=== PATIENT | female | born 1950 | race Caucasian/White ===

== ENCOUNTER → 2017-07-22 09:41 | Outpatient (CLI) | payer OTHER, SELFPAY ==
--- NOTE | 2017-07-22 09:47 | DI.ECHO.S_ITS ---
[facility] +---------+ : : [address] : : : : [id number] : : : : Phone: [phone] Echocardiogram Report + + :Name: KAHLIL WALTER Study Date: 07/22/2017 Height: 65 in : :[facility] Weight: 179 lb : : Gender: Female BSA: 1.9 m2 : :: 1950 Age: 67 yrs BP: 114/80 mmHg: :Reason For Study: Murmur : : Performed By: Iris Mabry : :Referring: SISI FRASER : + + Interpretation Summary Normal left ventricle size with ejection fraction 60-65%. Grade I diastolic dysfunction. Mildly dilated left atrium. Mild mitral annular calcification. Mild tricuspid regurgitation. The right ventricular systolic pressure is estimated at 21 mmHg assuming a right atrial pressure of 3 mm Hg. Procedure: A two-dimensional transthoracic echocardiogram with color flow and Doppler was performed. The study quality was technically good. There is no prior echocardiogram noted for this patient. The patient was in normal sinus rhythm during the exam. Left Ventricle: The left ventricle is normal in size. There is normal left ventricular wall thickness. The ejection fraction is estimated to be 60-65%. There are no focal wall motion abnormalities. Grade I diastolic dysfunction. Right Ventricle: The right ventricle grossly appears normal in size with probable normal systolic function. Atria: The left atrium is mildly dilated. Right atrial size is normal. The interatrial septum is intact with no evidence for an atrial septal defect. Mitral Valve: The mitral valve leaflets appear borderline thickened, but open well. There is mild mitral annular calcification. There is no mitral regurgitation noted. Aortic Valve: The aortic valve is trileaflet. The aortic valve opens well. No aortic regurgitation is present. Tricuspid Valve: The tricuspid valve leaflets are thin and pliable. There is mild tricuspid regurgitation. The right ventricular systolic pressure is estimated at 21 mmHg assuming a right atrial pressure of 3 mm Hg. Pulmonic Valve: The pulmonic valve is not well seen, but is grossly normal. There is no pulmonic valvular regurgitation. Great Vessels: The aortic root is normal size. The dimensions of the ascending aorta are normal. The IVC is of normal diameter and collapses greater than 50% with a sniff. This suggests a low right atrial pressure of 3 mm Hg. Pericardium/ Pleura There is no pericardial effusion. There is no pleural effusion. MMode/2D Measurements & Calculations LVIDd: 4.0 cm Ao root diam: 3.0 cm LVIDs: 2.6 cm Aortic Jxn: 2.6 cm FS: 34.3 % asc Aorta Diam: 3.4 cm EPSS: 1.4 cm Ao Arch Diam (Prox Trans): 2.7 cm IVSd: 0.87 cm LVPWd: 0.98 cm LV funk. diameter/BSA (cm/m^2): 2.1 LV sys. diameter/BSA (cm/m^2): 1.4 LA dimension: 3.5 cm RA long axis: 4.8 cm LA A2 area: 23.2 cm2 RA area: 15.4 cm2 LA A4 area: 21.5 cm2 RA vol: 41.8 ml LA length (vol): 5.3 cm RA : 22.2 ml/m2 LA vol: 80.6 ml IVC diam: 1.3 cm LA vol index: 42.7 ml/m2 RVDd major: 5.0 cm RVD1 (basal): 3.3 cm RVD2 (mid): 2.5 cm Doppler Measurements & Calculations Ao V2 max: 153.7 cm/sec MV E max mg: 63.6 cm/sec Ao V2 mean: 105.0 cm/sec MV A max mg: 84.0 cm/sec Ao max P.4 mmHg MV E/A: 0.76 Ao mean P.0 mmHg Med Peak E' Mg: 5.4 cm/sec Ao V2 VTI: 35.7 cm E/E' med: 11.9 Lat Peak E' Mg: 5.6 cm/sec E/E' lat: 11.4 E/e' average: 11.6 MV dec time: 0.28 sec MV P1/2t: 84.0 msec TR max mg: 211.7 cm/sec MV P1/2t max mg: 64.4 cm/sec TR max P.9 mmHg MVA(P1/2t): 2.6 cm2 PA V2 max: 75.4 cm/sec PA V2 mean: 44.0 cm/sec PA mean P.99 mmHg PA Accel Time: 0.20 sec Electronically signed by: Ti Mccauley on Reading Physician:07/22/2017 01:50 PM
== END ==
PROVIDERS: PCP Physician Assistant; Visit Provider Physician Assistant
DX: I07.1 Rheumatic tricuspid insufficiency (principal); R01.1 Cardiac murmur, unspecified; E03.9 Hypothyroidism, unspecified
CPT/HCPCS: 93306

== ENCOUNTER → 2017-07-23 08:50 | Outpatient (CLI) | payer OTHER, SELFPAY ==
[2017-07-23 09:49] LABS: Alanine Aminotransferase 27 IU/L (9-52); Albumin 4.3 g/dL (3.5-5.0); Albumin Globulin Ratio 1.2 (1.0-2.8); Alkaline Phosphatase 55 U/L (38-126); Aspartate Aminotransferase 24 IU/L (14-36); BUN Creatinine Ratio 27.5 (6-22); Bilirubin Total 0.5 mg/dL (0.2-1.3); Blood Urea Nitrogen 22 mg/dL (7-17); Calcium 9.4 mg/dL (8.4-10.2); Carbon Dioxide 30 mmol/L (22-32); Chloride 100 mmol/L (98-107); Cholesterol 250 mg/dL (140-199); Estimated Glomerular Filt Rate > 60.0 mL/min (>60); Globulin 3.6 g/dL (1.7-4.1); Glucose 89 mg/dL (80-110); HDL Cholesterol 69 mg/dL (40-60); HEMOLYSIS < 15 (0-50); LDL Cholesterol Calculated 158 mg/dL (<100); Potassium 4.5 mmol/L (3.4-5.1); Sodium 141 mmol/L (137-145); Total Protein 7.9 g/dL (6.3-8.2); Triglycerides 113 mg/dL (35-150)
[2017-07-23 10:12] LABS: Free T4, Direct Thyroxine 0.89 ng/dL (0.78-2.19)
== END ==
PROVIDERS: PCP Physician Assistant; Visit Provider Physician Assistant
DX: E03.9 Hypothyroidism, unspecified (principal); R01.1 Cardiac murmur, unspecified
CPT/HCPCS: 36415; 80053; 80061; 84439; 84443

== ENCOUNTER → 2017-11-13 09:47 | Outpatient (CLI) | payer OTHER, SELFPAY ==
--- NOTE | 2017-11-13 09:49 | DI.MG.S_ITS ---
BILATERAL DIGITAL SCREENING MAMMOGRAM 3D/2D WITH CAD: 11/13/2017 CLINICAL: Routine screening. Comparison is made to exams dated: 04/30/2014 mammogram, 01/13/2013 mammogram, and 12/24/2012 mammogram - [facility]. There are scattered fibroglandular elements in both breasts. Current study was also evaluated with a Computer Aided Detection (CAD) system. No significant masses, calcifications, or other findings are seen in either breast. There has been no significant interval change. IMPRESSION: NEGATIVE There is no mammographic evidence of malignancy. A 1 year screening mammogram is recommended.(11/14/2018) NOTE: For mammograms, a report in lay terms will be sent to the patient. Approximately 15% of breast malignancies will not be visualized mammographically. In the management of a palpable breast mass, a negative mammogram must not discourage biopsy of a clinically suspicious lesion. Electronically Signed By: Sheila mcintyre/magno:11/13/2017 13:19:47 letter sent: Normal Exam ACR BI-RADS Category 1: Negative [id number]
== END ==
PROVIDERS: PCP Physician Assistant; Visit Provider Physician Assistant
DX: Z12.31 Encounter for screening mammogram for malignant neoplasm of breast (principal)
CPT/HCPCS: 77063; 77067

== ENCOUNTER 2017-12-11 10:37 | Day surgery (SDC) | payer OTHER, SELFPAY ==
--- NOTE | 2017-12-11 | PATH_ITS ---
[facility] Accession Number: [id number] . 01 Material submitted: . ASCENDING COLON POLYP . 02 Diagnosis: Biopsy, Ascending Colon Polyp: Polypoid-shaped fragment of colon mucosa associated with very prominent mucosal lymphoid aggregate. MRV/12/12/2017 . 02 Electronically signed: . Mike Pan MD, Pathologist NPI- [id number] . 01 Gross description: . Received one formalin-filled container labeled with the patient's name and labeled ascending col. Polyp. The specimen consists of a 0.2 cm portion of tissue. Entirely submitted in one cassette. [place] [id number] /[facility] . 02 Pathologist provided ICD-10: K63.5 . 02 CPT . 927907 Performed at: 01 [facility] [place] [address] [id number] MD Dick Malloy MD Phone: [phone] Performed at: 02 [facility] [place] [address] [place], [place] [id number] MD Bautista Arthur MD Phone: [phone]
[2017-12-11 11:15] VITALS: BMI 31.1
[2017-12-11] MEDS: SODIUM CHLORIDE 0.9% 1,000 ML 70 ML IV (11:30)
--- NOTE | 2017-12-11 11:30 | PM.HP.1 ---
History of Present Illness Date Patient Seen: 12/11/17 Chief complaint: [id number] Narrative: 67-year-old female with a family history colon cancer and colon polyps as well as a personal history of polyps on prior colonoscopy in 2012 who is here for polyp surveillance. She states she had a ruptured appendix around 3 years ago and was told she had adhesions. Patient History Medical History ADD (attention deficit disorder) (Chronic 2007) Factor VII deficiency (Chronic Unknown) Hypothyroidism (Chronic 1977) IBS (irritable bowel syndrome) (Chronic ~2017) Lichen sclerosus of female genitalia (Chronic Unknown) Mitral valve prolapse (Chronic 1987) Osteopenia (Chronic 2013) Scoliosis (Chronic Unknown) Seasonal affective disorder (Chronic Unknown) Colon polyps (Resolved 2005) Fibroids (Resolved 1982) MRSA (methicillin resistant Staphylococcus aureus) (Resolved 2007) Melanoma (Resolved 1952) Plantar warts (Resolved ~1953) Urinary incontinence (Resolved ~2015) Surgical History History of surgical removal of ganglion cyst (Resolved Unknown) S/P total abdominal hysterectomy and bilateral salpingo-oophorectomy Status post appendectomy Family & Social History Tobacco & Substance use: Smoking Status Never smoker alcohol intake current Meds Home Medications Medication Instructions Recorded Confirmed Type [VITAMIN D3] 8,000 mg PO QDAY #0 02/28/17 12/11/17 History clobetasol 1 maximiliano TOPICAL HS #0 02/28/17 12/11/17 History levothyroxine 25 mcg tablet 25 mcg PO DAILY #90 tab 07/22/17 12/11/17 Rx oxybutynin chloride ER 5 mg See Label Instructions PO DAILY 07/22/17 12/11/17 Rx tablet,extended release 24 hr #180 tab Ibandronate 150 mg See Label Instructions .ROUTE 11/05/17 12/09/17 History .COMPLEX venlafaxine ER 37.5 mg 75 mg PO DAILY #60 cap 11/25/17 12/09/17 Rx capsule,extended release 24 hr Vitamin K2 1 l PO DAILY 12/09/17 12/11/17 History [TRI-ESTROGEN/PROGEST] See Label Instructions TOPICAL 12/10/17 12/11/17 Rx QDAY #22.5 Allergies Allergy/AdvReac Type Severity Reaction Status Date / Time grass pollen [GRASS POLLEN] Allergy Mild ITCHING Unverified 12/09/17 09:11 AND RED RASH escitalopram [From Lexapro] AdvReac Intermediate made me Verified 12/09/17 09:11 feel sedated and sleepy. Influenza Virus Vaccines AdvReac Intermediate FEVER, Unverified 12/09/17 09:11 [INFLUENZA VIRUS VACCINES] ACHES AND PAINS AND WIPED OUT. I ENDED UP IN BED sertraline AdvReac Mild made me Verified 12/09/17 09:11 feel anxious and jittery. SMOKE Allergy Severe BLOOD SHOT Uncoded 12/09/17 09:11 EYES, SORE THROAT AND COUGHING MORPHINE IV AdvReac Severe HIVES Uncoded 12/09/17 09:11 Review of Systems Review of Systems All systems reviewed & are unremarkable except as noted in HPI and below Exam Narrative Exam Narrative: General: Patient is obese, not in apparent distress Cardiovascular: Regular rate and rhythm, no murmurs, rubs, or gallops; no evidence of edema; no palpable abdominal aortic aneurysm Gastrointestinal: Normoactive bowel sounds, soft, nontender, nondistended, no rebound tenderness, no hepatosplenomegaly, no evidence of hernia Assessment & Plan Plan: Assessment/Plan Narrative: 67-year-old female with a family history colon cancer in her mother, family history colon polyps in her brother, and a personal history of polyps who is here for polyp surveillance. No active GI symptoms at present. Patient had a ruptured appendix 3 years ago and was told she had adhesions. We will keep this in mind when doing her colonoscopy. Regarding the procedure(s), the risks and potential complications, benefits, and alternatives (including not doing the procedure) were discussed with the patient. The risks include but are not limited to bleeding, splenic injury, infection, perforation which may require surgical intervention, missed lesions, and adverse reactions to sedative medicines. After a question and answer period, the patient agreed to proceed with the procedure(s) and gives informed consent.
--- NOTE | 2017-12-11 11:33 | P.HP_ITS ---
History of Present Illness Date Patient Seen: 12/11/17 Chief complaint: [id number] Narrative: 67-year-old female with a family history colon cancer and colon polyps as well as a personal history of polyps on prior colonoscopy in 2012 who is here for polyp surveillance. She states she had a ruptured appendix around 3 years ago and was told she had adhesions. Patient History Medical History ADD (attention deficit disorder) (Chronic 2007) Factor VII deficiency (Chronic Unknown) Hypothyroidism (Chronic 1977) IBS (irritable bowel syndrome) (Chronic ~2017) Lichen sclerosus of female genitalia (Chronic Unknown) Mitral valve prolapse (Chronic 1987) Osteopenia (Chronic 2013) Scoliosis (Chronic Unknown) Seasonal affective disorder (Chronic Unknown) Colon polyps (Resolved 2005) Fibroids (Resolved 1982) MRSA (methicillin resistant Staphylococcus aureus) (Resolved 2007) Melanoma (Resolved 1952) Plantar warts (Resolved ~1953) Urinary incontinence (Resolved ~2015) Surgical History History of surgical removal of ganglion cyst (Resolved Unknown) S/P total abdominal hysterectomy and bilateral salpingo-oophorectomy Status post appendectomy Family & Social History Tobacco & Substance use: Smoking Status Never smoker alcohol intake current Meds Home Medications Medication Instructions Recorded Confirmed Type [VITAMIN D3] 8,000 mg PO QDAY #0 02/28/17 12/11/17 History clobetasol 1 maximiliano TOPICAL HS #0 02/28/17 12/11/17 History levothyroxine 25 mcg tablet 25 mcg PO DAILY #90 tab 07/22/17 12/11/17 Rx oxybutynin chloride ER 5 mg See Label Instructions PO DAILY 07/22/17 12/11/17 Rx tablet,extended release 24 hr #180 tab Ibandronate 150 mg See Label Instructions .ROUTE 11/05/17 12/09/17 History .COMPLEX venlafaxine ER 37.5 mg 75 mg PO DAILY #60 cap 11/25/17 12/09/17 Rx capsule,extended release 24 hr Vitamin K2 1 l PO DAILY 12/09/17 12/11/17 History [TRI-ESTROGEN/PROGEST] See Label Instructions TOPICAL 12/10/17 12/11/17 Rx QDAY #22.5 Allergies Allergy/AdvReac Type Severity Reaction Status Date / Time grass pollen [GRASS POLLEN] Allergy Mild ITCHING Unverified 12/09/17 09:11 AND RED RASH escitalopram [From Lexapro] AdvReac Intermediate made me Verified 12/09/17 09: 11 feel sedated and sleepy. Influenza Virus Vaccines AdvReac Intermediate FEVER, Unverified 12/09/17 09:11 [INFLUENZA VIRUS VACCINES] ACHES AND PAINS AND WIPED OUT. I ENDED UP IN BED sertraline AdvReac Mild made me Verified 12/09/17 09:11 feel anxious and jittery. SMOKE Allergy Severe BLOOD SHOT Uncoded 12/09/17 09:11 EYES, SORE THROAT AND COUGHING MORPHINE IV AdvReac Severe HIVES Uncoded 12/09/17 09:11 Review of Systems Review of Systems All systems reviewed & are unremarkable except as noted in HPI and below Exam Narrative Exam Narrative: General: Patient is obese, not in apparent distress Cardiovascular: Regular rate and rhythm, no murmurs, rubs, or gallops; no evidence of edema; no palpable abdominal aortic aneurysm Gastrointestinal: Normoactive bowel sounds, soft, nontender, nondistended, no rebound tenderness, no hepatosplenomegaly, no evidence of hernia Assessment & Plan Plan: Assessment/Plan Narrative: 67-year-old female with a family history colon cancer in her mother, family history colon polyps in her brother, and a personal history of polyps who is here for polyp surveillance. No active GI symptoms at present. Patient had a ruptured appendix 3 years ago and was told she had adhesions. We will keep this in mind when doing her colonoscopy. Regarding the procedure(s), the risks and potential complications, benefits, and alternatives (including not doing the procedure) were discussed with the patient. The risks include but are not limited to bleeding, splenic injury, infection, perforation which may require surgical intervention, missed lesions, and adverse reactions to sedative medicines. After a question and answer period , the patient agreed to proceed with the procedure(s) and gives informed consent.
[2017-12-11 11:37] VITALS: BP 107/79; PULSE 75; RESP 16; TEMP 36.6; O2SAT 95
--- NOTE | 2017-12-11 11:51 | SUR.PREOP ---
Pt ready for Endo suite at this time. Nursing admission data base has been completed, PIV in place, and d/c instructions have been reviewed. Pt awaiting Dr Dove and to sign consent and also awaiting Endo land surveyor assistant at the bedside prior to taking to Endo Suite.
--- NOTE | 2017-12-11 12:34 | PM.OP.ENDO ---
Operative Date/Time/Diagnoses Date of procedure: 12/11/17 Procedure Notes Procedure in detail: Surgeon: Noble Dove MD Procedure: Colonoscopy with Polypectomy Preoperative diagnosis: Colon polyp surveillance, family history of colon cancer (mother) and colon polyps (brother) Postoperative diagnosis: Ascending colon polyp status post polypectomy, sigmoid diverticulosis, grade 1 internal hemorrhoids Medications: Conscious sedation using 6 mg IV of Midazolam and 100 mcg IV of Fentanyl Preanesthesia Assessment An H and P was performed/updated and the Px?s ASA class is 2. The procedure was discussed in detail with the patient. The potential risks and complications including infection, bleeding, missed lesions, perforation, need for surgery in case of perforation, prolonged hospital stay, and were explained. A brief question and answer period was allotted and once all questions were answered, informed consent was obtained. The patient was brought back to the procedure room and placed on standard monitoring. The patient?s vital signs were monitored continuously throughout the entire procedure. Prior to starting, a timeout was performed to confirm the patient?s identity, allergies, medications, and procedure. Procedure in detail The patient was placed in left lateral decubitus position and once adequate sedation was obtained a SAM was performed. The digital rectal examination did not reveal any palpable lesions. The tip of the colonoscope was placed in the anal canal and advanced without difficulty all the way to the cecum which was identified by the appendiceal orifice and the ileocecal valve. The terminal ileum was intubated to a distance of 5 cm from the ileocecal valve and the visualized mucosa appeared normal. The colonoscope was brought back to the cecum and careful examination of all portillo of the colon was performed with irrigation of any residual stool. In the ascending colon, there was note of a 2 mm sessile polyp which was removed by means of cold Jumbo forceps. Resection and retrieval were complete with minimal bleeding. The remainder of the colon showed no further polyps. In the sigmoid colon, there was note of few medium-size diverticula Retroflexion was performed in the rectum which revealed grade 1 internal hemorrhoids The patient tolerated the procedure well and will be brought back to the recovery area to be discharged once criteria are met. The prep was judged to be good and adequate to identify polyps less than 5 mm. The withdrawal time was 9 min. The total physician intraservice time was 16 min. Complications There were no complications and estimated blood loss was minimal. Recommendations: Resume previous diet Continue outPx medications Follow up pathology results Repeat colonoscopy in 5 years for surveillance An emergency contact number was given to the patient for any complications related to the procedure
[2017-12-11] MEDS: MIDAZOLAM 5 MG/5 ML VIAL IV (12:50)
[2017-12-11] MEDS: fentaNYL 250 MCG/5 ML INJ IV (13:01)
--- NOTE | 2017-12-11 13:03 | PM.DS.1 ---
History of Present Illness Chief complaint: [id number] Narrative: 67-year-old female with a family history colon cancer and colon polyps as well as a personal history of polyps on prior colonoscopy in 2013 who is here for polyp surveillance. She states she had a ruptured appendix around 3 years ago and was told she had adhesions. Discharge Providers Primary care physician: Vero Eid PA-C Discharge provider: Noble Dove MD Discharge Date: 12/11/17 Exam Vital Signs (past 8 hours): - 12/11/17 11:37 Temperature 97.8 F Pulse Rate 75 Respiratory Rate 16 Blood Pressure 107/79 Pulse Oximetry 95 Oxygen Delivery Method Room Air Narrative Exam Narrative: General: Patient is Obese, not in apparent distress Cardiovascular: Regular rate and rhythm, no murmurs, rubs, or gallops; no evidence of edema; no palpable abdominal aortic aneurysm Gastrointestinal: Normoactive bowel sounds, soft, nontender, nondistended, no rebound tenderness, no hepatosplenomegaly, no evidence of hernia Discharge Plan Discharge Plan Patient Disposition: Home Discharge Med Rec/Prescriptions Prescriptions: Continue Ibandronate 150 mg See Patient Comments .ROUTE .COMPLEX RF: 0 Vitamin K2 1 l PO DAILY RF: 0 [TRI-ESTROGEN/PROGEST] See Label Instructions Topical QDAY Qty: 22.5 RF: 3 clobetasol 0.05 % ointment 1 maximiliano Topical HS Qty: 0 RF: 0 [VITAMIN D3] 8,000 mg PO QDAY Qty: 0 RF: 0 oxybutynin chloride 5 mg tablet extended release 24hr See Label Instructions PO DAILY Qty: 180 RF: 1 levothyroxine [Levo-T] 25 mcg tablet 25 mcg PO DAILY Qty: 90 RF: 1 venlafaxine 37.5 mg capsule,extended release 24hr 75 mg PO DAILY Qty: 60 RF: 1 Discharge Orders: Discharge (Order); Ordered 12/11/17 Ordered By: Noble Dove Provider Discharge Instructions Diet: Diet as Tolerated Visit Report/Discharge Packet Stand Alone Forms: Surgery Discharge Discharge Data Primary Care Provider: Vero Eid Attending Provider: Noble Dove
[2017-12-11 13:09] VITALS: BP 104/72; PULSE 67; RESP 16; TEMP 36.6; O2SAT 98
--- NOTE | 2017-12-11 13:28 | SUR.PHASEII ---
patient ready for discharge. ride unavailable until after appointment around 2:15, resting in bed snack provided.
== END 2017-12-11 14:33 | disposition home or self-care (01) ==
PROVIDERS: PCP Physician Assistant; Visit Provider Internal Medicine Gastroenterology
PROC: 0DJD8ZZ Inspection of Lower Intestinal Tract, Via Natural or Artificial Opening Endoscopic (ICD-10-PCS; CPT 45378; principal; 2017-12-11 12:30)
DX: Z86.010 Personal history of colon polyps (principal); Z80.0 Family history of malignant neoplasm of digestive organs; K57.30 Diverticulosis of large intestine without perforation or abscess without bleeding; K64.0 First degree hemorrhoids; D68.51 Activated protein C resistance; E78.5 Hyperlipidemia, unspecified; K58.9 Irritable bowel syndrome, unspecified; D12.2 Benign neoplasm of ascending colon
CPT/HCPCS: 45380; J2250; J3010

== ENCOUNTER → 2017-12-16 11:34 | Outpatient (CLI) | payer OTHER, SELFPAY ==
[2017-12-16 13:34] LABS: Free T3, Triiodothyronine Free 2.63 pg/mL (2.77-5.27); Free T4, Direct Thyroxine 1.04 ng/dL (0.78-2.19)
[2017-12-16 13:47] LABS: Thyroid Stimulating Hormone 2.78 uIU/mL (0.47-4.68)
== END ==
PROVIDERS: PCP Physician Assistant; Visit Provider Physician Assistant
DX: E03.9 Hypothyroidism, unspecified (principal); R53.83 Other fatigue
CPT/HCPCS: 36415; 84439; 84443; 84481

== ENCOUNTER → 2018-01-27 12:32 | Outpatient (CLI) | payer OTHER, SELFPAY | PROVIDERS: PCP Physician Assistant; Visit Provider Physician Assistant | DX: R30.0 Dysuria (principal) | CPT/HCPCS: 87077; 87086; 87186 ==

== ENCOUNTER → 2018-03-10 10:49 | Outpatient (CLI) | payer OTHER, SELFPAY | PROVIDERS: PCP Physician Assistant; Visit Provider Physician Assistant | DX: Z53.9 Procedure and treatment not carried out, unspecified reason (principal) ==

== ENCOUNTER → 2018-03-13 12:38 | Outpatient (CLI) | payer OTHER, SELFPAY ==
[2018-03-13 14:44] LABS: Cholesterol 241 mg/dL (140-199); HDL Cholesterol 76 mg/dL (40-60); LDL Cholesterol Calculated 145 mg/dL (<100); Triglycerides 100 mg/dL (35-150)
[2018-03-13 15:16] LABS: Thyroid Stimulating Hormone 2.69 uIU/mL (0.47-4.68)
== END ==
PROVIDERS: PCP Physician Assistant; Visit Provider Physician Assistant
DX: E03.9 Hypothyroidism, unspecified (principal); E78.5 Hyperlipidemia, unspecified
CPT/HCPCS: 36415; 80061; 84443

== ENCOUNTER → 2018-06-25 12:52 | Outpatient (CLI) | payer OTHER, SELFPAY ==
[2018-06-25 13:54] LABS: Cholesterol 259 mg/dL (140-199); HDL Cholesterol 66 mg/dL (40-60); LDL Cholesterol Calculated 164 mg/dL (<100); Triglycerides 146 mg/dL (35-150)
== END ==
PROVIDERS: PCP Physician Assistant; Visit Provider Physician Assistant
DX: E78.2 Mixed hyperlipidemia (principal); E78.5 Hyperlipidemia, unspecified
CPT/HCPCS: 36415; 80061

== ENCOUNTER → 2018-08-11 16:16 | Outpatient (CLI) | payer OTHER, SELFPAY ==
--- NOTE | 2018-08-11 16:20 | DI.RAD.S_ITS ---
PROCEDURE: XR LUMBAR SPINE 2-3V INDICATIONS: low back pain, incontinence TECHNIQUE: 3 views of the lumbar spine were acquired. COMPARISON: None. FINDINGS: Bones: No fracture or focal osseous destruction. Multilevel degenerative endplate sclerosis and spurring. Diffuse facet arthropathy. Grade 1 anterolisthesis of L4 on L5 and L5 on S1 grade 1 retrolisthesis of L1 on L2. Levoscoliosis noted centered at L3. Diffuse moderate lumbar disc space narrowing Soft tissues: Overlying bowel gas pattern is normal. No suspicious soft tissue calcifications. IMPRESSION: Levoscoliosis. Moderate diffuse lumbar spondylosis and facet arthropathy. Multilevel spondylosis ECZ above. Dictated by: Jong Lainez M.D. on 08/11/2018 at 17:03 Approved by: Jong Lainez M.D. on 08/11/2018 at 17:05
== END ==
PROVIDERS: PCP Physician Assistant; Visit Provider Nurse Practitioner Family
DX: M54.5 Low back pain (principal); M47.816 Spondylosis without myelopathy or radiculopathy, lumbar region; R32 Unspecified urinary incontinence; M41.86 Other forms of scoliosis, lumbar region
CPT/HCPCS: 72100

== ENCOUNTER → 2018-08-21 15:13 | Outpatient (CLI) | payer OTHER, SELFPAY | PROVIDERS: PCP Physician Assistant; Visit Provider Physician Assistant | DX: M85.852 Other specified disorders of bone density and structure, left thigh (principal); Z78.0 Asymptomatic menopausal state; E07.9 Disorder of thyroid, unspecified; Z90.722 Acquired absence of ovaries, bilateral | CPT/HCPCS: 77080 ==

== ENCOUNTER → 2018-10-09 12:36 | Outpatient (CLI) | payer OTHER, SELFPAY ==
[2018-10-09 13:00] LABS: Hematocrit 39.6 % (36-46); Hemoglobin 13.3 g/dL (12.0-16.0)
[2018-10-09 13:34] LABS: HEMOLYSIS < 15 (0-50); Iron 127 ug/dL (37-170)
[2018-10-09 13:45] LABS: Percent Iron Saturation 41 % (15-50); Total Iron Binding Capacity 310 ug/dL (265-497); Transferrin 277 mg/dL (206-381)
[2018-10-09 14:06] LABS: Thyroid Stimulating Hormone 2.91 uIU/mL (0.47-4.68)
[2018-10-09 14:08] LABS: Ferritin 22.2 ng/mL (11.1-264)
== END ==
PROVIDERS: PCP Physician Assistant; Visit Provider Physician Assistant
DX: E03.9 Hypothyroidism, unspecified (principal); L65.9 Nonscarring hair loss, unspecified; R53.83 Other fatigue
CPT/HCPCS: 36415; 82728; 83540; 83550; 84443; 85014; 85018

== ENCOUNTER → 2018-12-10 13:13 | Outpatient (CLI) | payer OTHER, SELFPAY ==
[2018-12-10 14:06] LABS: Add Manual Diff / Slide Review NO; Basophils Absolute Auto 100 /uL (0-100); Basophils Percent Auto 0.9 % (0-2); Eosinophils Absolute Auto 200 /uL (0-450); Eosinophils Percent Auto 2.6 % (2-4); Hematocrit 38.9 % (36-46); Hemoglobin 13.2 g/dL (12.0-16.0); Lymphocytes Absolute Auto 2000 /uL (1100-4500); Mean Corpuscular HGB Conc 33.8 % (30-36); Mean Corpuscular Volume 91.5 fL (80-100); Monocytes Absolute Auto 600 /uL (0-900); Monocytes Percent Auto 9.6 % (3-14); Neutrophils Absolute Auto 3200 /uL (1500-7000); Neutrophils Percent Auto 53.9 % (50-75); Platelet Count 294 X10^3/uL (150-400); Red Blood Cell Count 4.25 X10^6/uL (4.0-5.2); Red Cell Distribution Width 12.7 % (11.6-14.8); White Blood Cell Count 5.9 X10^3/uL (4.5-11.0)
[2018-12-10 14:33] LABS: Blood Urea Nitrogen 27 mg/dL (7-17); Carbon Dioxide 27 mmol/L (22-32); Chloride 103 mmol/L (98-107); Estimated Glomerular Filt Rate 54.8 mL/min (>60); Glucose 88 mg/dL (80-110); HEMOLYSIS < 15 (0-50); Potassium 4.7 mmol/L (3.4-5.1); Sodium 140 mmol/L (137-145)
== END ==
PROVIDERS: Family Provider Orthopaedic Surgery; PCP Physician Assistant; Visit Provider Hospitalist
DX: Z01.818 Encounter for other preprocedural examination (principal)
CPT/HCPCS: 36415; 80048; 85025; 93005; 93010

== ENCOUNTER → 2019-01-13 10:46 | Outpatient (CLI) | payer OTHER, SELFPAY ==
[2019-01-13 14:15] LABS: Cholesterol 282 mg/dL (140-199); HDL Cholesterol 73 mg/dL (40-60); LDL Cholesterol Calculated 186 mg/dL (<100); Triglycerides 113 mg/dL (35-150)
== END ==
PROVIDERS: Family Provider Orthopaedic Surgery; PCP Physician Assistant; Visit Provider Physician Assistant
DX: E78.2 Mixed hyperlipidemia (principal); R78.2 Finding of cocaine in blood
CPT/HCPCS: 80061

== ENCOUNTER → 2019-08-27 09:38 | Outpatient (CLI) | payer MEDICARE, SELFPAY ==
[2019-08-27 10:05] LABS: Add Manual Diff / Slide Review NO; Basophils Absolute Auto 100 /uL (0-100); Basophils Percent Auto 1.1 % (0-2); Eosinophils Absolute Auto 200 /uL (0-450); Eosinophils Percent Auto 2.4 % (2-4); Hematocrit 39.2 % (36-46); Hemoglobin 13.2 g/dL (12.0-16.0); Lymphocytes Absolute Auto 2000 /uL (1100-4500); Mean Corpuscular HGB Conc 33.5 % (30-36); Mean Corpuscular Hemoglobin 30.8 PG (26-34); Mean Corpuscular Volume 91.9 fL (80-100); Monocytes Absolute Auto 600 /uL (0-900); Monocytes Percent Auto 8.7 % (3-14); Neutrophils Absolute Auto 4100 /uL (1500-7000); Neutrophils Percent Auto 58.8 % (50-75); Platelet Count 303 X10^3/uL (150-400); Red Blood Cell Count 4.27 X10^6/uL (4.0-5.2); Red Cell Distribution Width 13.2 % (11.6-14.8)
[2019-08-27 10:30] LABS: Alanine Aminotransferase 14 IU/L (<35); Albumin 4.1 g/dL (3.5-5.0); Albumin Globulin Ratio 1.3 (1.0-2.8); Alkaline Phosphatase 64 U/L (38-126); Aspartate Aminotransferase 23 IU/L (14-36); BUN Creatinine Ratio 18.3 (6-22); Bilirubin Total 0.3 mg/dL (0.2-1.3); Blood Urea Nitrogen 17 mg/dL (7-17); Calcium 9.4 mg/dL (8.4-10.2); Carbon Dioxide 26 mmol/L (22-32); Chloride 103 mmol/L (98-107); Cholesterol 231 mg/dL (140-199); Estimated Glomerular Filt Rate 59.4 mL/min (>60); Globulin 3.2 g/dL (1.7-4.1); Glucose 89 mg/dL (80-110); HDL Cholesterol 54 mg/dL (40-60); HEMOLYSIS < 15 (0-50); LDL Cholesterol Calculated 154 mg/dL (<100); Potassium 4.2 mmol/L (3.4-5.1); Sodium 136 mmol/L (137-145); Total Protein 7.3 g/dL (6.3-8.2); Triglycerides 117 mg/dL (35-150)
[2019-08-27 10:46] LABS: Vitamin D 25 Hydroxy (D3) 91.9 ng/mL (30.0-100.0)
[2019-08-27 10:48] LABS: Free T3, Triiodothyronine Free 3.06 pg/mL (2.77-5.27); Free T4, Direct Thyroxine 1.41 ng/dL (0.78-2.19)
== END ==
PROVIDERS: Family Provider Orthopaedic Surgery; PCP Family Medicine; Referring Provider Family Medicine; Visit Provider Family Medicine
DX: E03.9 Hypothyroidism, unspecified (principal); E78.2 Mixed hyperlipidemia
CPT/HCPCS: 36415; 80053; 80061; 82306; 84439; 84443; 84481; 85025

== ENCOUNTER → 2019-09-28 13:15 | Outpatient (CLI) | payer MEDICARE, SELFPAY ==
--- NOTE | 2019-09-28 13:17 | DI.MRI.S_ITS ---
PROCEDURE: MR LUMBAR SPINE WO CON INDICATIONS: back pain TECHNIQUE: Noncontrast sagittal T1 spin echo and T2 fast echo, sagittal STIR, axial T1 and T2 fast spin echo through the lumbar spine. In cases with scoliosis, additional coronal T2 fast spin echo may be performed. COMPARISON: [facility] [place], MR, MR LUMBAR SPINE WITHOUT CONTRAST, 10/22/2018, 10:40. It is noted that prior exam is not included in its entirety, limiting comparison. FINDINGS: Image quality: Excellent. Alignment and Curvature: There is [id number] levoconvex scoliotic curvature with apex at L2. There is grade 1 anterolisthesis of L4 on L5, L5 on S1 as well as trace retrolisthesis of L1 on L2. Bone Marrow: Marrow is of normal overall signal. Moderate reactive endplate changes are present at L1-L2, minimal throughout the remainder of the lumbar spine. No acute vertebral body compression fractures. Spinal Cord: Conus medullaris terminates at the L2 level. Visualized cord demonstrates normal signal and size. Paraspinous Soft Tissues: No paravertebral masses. Discs: Severe desiccation is present L1-L2, moderate throughout the remainder of the lumbar spine. L1-L2: Mild disc bulge without spinal stenosis. No foraminal narrowing. Facet and ligamentum flavum hypertrophy are present. L2-L3: Mild disc bulge without spinal stenosis. Mild right foraminal narrowing with facet and ligamentum flavum hypertrophy. L3-L4: Mild disc bulge with minimal canal narrowing. Minimal left foraminal narrowing with facet and ligamentum flavum hypertrophy. L4-L5: Mild disc bulge with moderate to severe spinal stenosis. Moderate to severe right and moderate left foraminal narrowing with facet and ligamentum flavum hypertrophy. L5-S1: Mild disc bulge without spinal stenosis. Severe left foraminal narrowing with facet and ligamentum flavum hypertrophy. IMPRESSION: 1. Multilevel disc bulges. 2. Multilevel spinal stenosis, moderate to severe at L4-5 secondary to disc bulge with contributing affective facet/ligamentum flavum arthropathy. 3. Multilevel foraminal narrowing severe at L5-S1 secondary to facet arthropathy with contributing affective anterolisthesis. Dictated by: Pratibha Lara M.D. on 09/28/2019 at 15:49 Approved by: Pratibha Lara M.D. on 09/28/2019 at 15:55
== END ==
PROVIDERS: Family Provider Orthopaedic Surgery; PCP Family Medicine; Referring Provider Family Medicine; Visit Provider Family Medicine
DX: M51.16 Intervertebral disc disorders with radiculopathy, lumbar region (principal); M51.17 Intervertebral disc disorders with radiculopathy, lumbosacral region; M47.26 Other spondylosis with radiculopathy, lumbar region; M47.27 Other spondylosis with radiculopathy, lumbosacral region; M48.061 Spinal stenosis, lumbar region without neurogenic claudication; M48.07 Spinal stenosis, lumbosacral region; M43.16 Spondylolisthesis, lumbar region; M43.17 Spondylolisthesis, lumbosacral region; G89.29 Other chronic pain
CPT/HCPCS: 72148

== ENCOUNTER → 2019-11-30 14:40 | Outpatient (CLI) | payer MEDICARE, SELFPAY | PROVIDERS: Family Provider Orthopaedic Surgery; PCP Family Medicine; Referring Provider Family Medicine; Visit Provider Neurological Surgery | DX: M85.852 Other specified disorders of bone density and structure, left thigh (principal); Z78.0 Asymptomatic menopausal state; E07.9 Disorder of thyroid, unspecified; M47.9 Spondylosis, unspecified; M54.41 Lumbago with sciatica, right side; G89.29 Other chronic pain; Z90.722 Acquired absence of ovaries, bilateral | CPT/HCPCS: 77080 ==

== ENCOUNTER → 2020-07-01 11:25 | Outpatient (CLI) | payer MEDICARE, SELFPAY ==
[2020-07-01 11:51] LABS: Appearance Urine UA CLEAR; Bilirubin Urine UA NEGATIVE (NEGATIVE); Color Urine UA YELLOW; Glucose Urine UA NEGATIVE (Negative); Ketones Urine UA NEGATIVE (NEGATIVE); Leukocyte Esterase Urine UA TRACE (NEGATIVE); Nitrite Urine UA NEGATIVE (Negative); Occult Blood Urine UA NEGATIVE (Negative); Protein Urine UA NEGATIVE (Negative); Specific Gravity Urine UA 1.025 (1.000-1.035); Urobilinogen Urine UA 0.2 E.U./dL (0.2)
[2020-07-01 12:06] LABS: Amorphous Sediment Urine 1+; Bacteria Urine Few (2-10); Culture Indicated Urine Specimen Cultured; RBC Urine 0-1/HPF (0-5/HPF); WBC Urine 5-10/HPF (0-5/HPF)
== END ==
PROVIDERS: Family Provider Orthopaedic Surgery; PCP Family Medicine; Referring Provider Family Medicine; Visit Provider Family Medicine
DX: R30.9 Painful micturition, unspecified (principal); R35.0 Frequency of micturition; Z87.440 Personal history of urinary (tract) infections
CPT/HCPCS: 81001; 87086

== ENCOUNTER → 2020-07-06 13:16 | Outpatient (CLI) | payer MEDICARE, SELFPAY | PROVIDERS: Family Provider Orthopaedic Surgery; PCP Family Medicine; Referring Provider Family Medicine; Visit Provider Family Medicine | DX: R30.0 Dysuria (principal) | CPT/HCPCS: 87077; 87086; 87186 ==

== ENCOUNTER → 2020-09-26 15:07 | Outpatient (CLI) | payer MEDICARE, SELFPAY ==
--- NOTE | 2020-09-26 | DI.MG.S_ITS ---
BILATERAL DIGITAL SCREENING MAMMOGRAM 3D/2D WITH CAD: 09/26/2020 CLINICAL: Routine screening. Comparison is made to exams dated: 11/13/2017 mammogram - [facility], 04/30/2014 mammogram, and 01/13/2013 mammogram - [facility]. There are scattered fibroglandular elements in both breasts. Current study was also evaluated with a Computer Aided Detection (CAD) system. There is a benign calcification in the left breast. No significant masses, calcifications, or other findings are seen in either breast. There has been no significant interval change. IMPRESSION: BENIGN There is no mammographic evidence of malignancy. A 1 year screening mammogram is recommended. This exam was interpreted at Station ID: [id number]. NOTE: For mammograms, a report in lay terms will be sent to the patient. Approximately 15% of breast malignancies will not be visualized mammographically. In the management of a palpable breast mass, a negative mammogram must not discourage biopsy of a clinically suspicious lesion. Electronically Signed By: Dick he/magno:09/26/2020 15:45:12 letter sent: Normal Exam ACR BI-RADS Category 2: Benign Finding(s) [id number]
== END ==
PROVIDERS: Family Provider Orthopaedic Surgery; PCP Family Medicine; Referring Provider Family Medicine; Visit Provider Family Medicine
DX: Z12.31 Encounter for screening mammogram for malignant neoplasm of breast (principal)
CPT/HCPCS: 77063; 77067

== ENCOUNTER → 2020-11-10 15:57 | Outpatient (CLI) | payer MEDICARE, SELFPAY | PROVIDERS: Family Provider Orthopaedic Surgery; PCP Family Medicine; Visit Provider Family Medicine | DX: N39.0 Urinary tract infection, site not specified (principal) | CPT/HCPCS: 87077; 87086; 87186 ==

== ENCOUNTER → 2020-12-02 16:27 | Outpatient (CLI) | payer MEDICARE, SELFPAY ==
[2020-12-02 17:54] LABS: BUN Creatinine Ratio 27.5 (6-22); Blood Urea Nitrogen 25 mg/dL (7-17); Calcium 9.3 mg/dL (8.4-10.2); Carbon Dioxide 20 mmol/L (22-32); Chloride 107 mmol/L (98-107); Estimated Glomerular Filt Rate > 60.0 mL/min (>60); Glucose 85 mg/dL (80-110); Potassium 4.8 mmol/L (3.4-5.1); Sodium 139 mmol/L (137-145)
[2020-12-02 18:03] LABS: HEMOLYSIS 84 (0-50)
[2020-12-02 18:20] LABS: Thyroid Stimulating Hormone 0.974 uIU/mL (0.47-4.68)
[2020-12-02 18:51] LABS: Free T3, Triiodothyronine Free 3.23 pg/mL (2.77-5.27); Free T4, Direct Thyroxine 1.48 ng/dL (0.78-2.19)
== END ==
PROVIDERS: Urology; Family Provider Orthopaedic Surgery; PCP Family Medicine; Referring Provider Family Medicine; Visit Provider Family Medicine
DX: E03.9 Hypothyroidism, unspecified (principal); N39.0 Urinary tract infection, site not specified
CPT/HCPCS: 36415; 80048; 84439; 84443; 84481

== ENCOUNTER → 2020-12-08 16:14 | Outpatient (CLI) | payer MEDICARE, SELFPAY ==
[2020-12-08 20:46] LABS: Appearance Urine UA SL CLOUDY; Bilirubin Urine UA NEGATIVE (NEGATIVE); Color Urine UA YELLOW; Glucose Urine UA NEGATIVE (Negative); Ketones Urine UA NEGATIVE (NEGATIVE); Leukocyte Esterase Urine UA 2+ (NEGATIVE); Nitrite Urine UA NEGATIVE (Negative); Occult Blood Urine UA TRACE-INTACT (Negative); Protein Urine UA NEGATIVE (Negative); Specific Gravity Urine UA 1.025 (1.000-1.035); Urobilinogen Urine UA 0.2 E.U./dL (0.2)
[2020-12-08 21:31] LABS: Bacteria Urine Moderate (10-30); Culture Indicated Urine Specimen Cultured; RBC Urine 0-1/HPF (0-5/HPF); WBC Urine 30-100/HPF (0-5/HPF)
== END ==
PROVIDERS: Family Provider Orthopaedic Surgery; PCP Family Medicine; Visit Provider Family Medicine
DX: R31.9 Hematuria, unspecified (principal)
CPT/HCPCS: 81001; 87077; 87086; 87186

== ENCOUNTER → 2020-12-27 16:00 | Outpatient (CLI) | payer MEDICARE, SELFPAY ==
[2020-12-27 16:40] LABS: COVID19 -Nasal RAPID Negative (Negative)
== END ==
PROVIDERS: Family Provider Orthopaedic Surgery; PCP Family Medicine; Referring Provider Nurse Practitioner Family; Visit Provider Nurse Practitioner Family
DX: Z20.822 Contact with and (suspected) exposure to COVID-19 (principal)
CPT/HCPCS: 87635

== ENCOUNTER → 2021-02-07 16:25 | Outpatient (CLI) | payer MEDICARE, SELFPAY ==
[2021-02-07 17:28] LABS: INR 3.2 (0.9-1.3); Prothrombin Time 37.2 SECONDS (10.1-12.7)
== END ==
PROVIDERS: Family Provider Orthopaedic Surgery; PCP Family Medicine; Referring Provider Family Medicine; Visit Provider Family Medicine
DX: Z79.01 Long term (current) use of anticoagulants (principal)
CPT/HCPCS: 36415; 85610

== ENCOUNTER → 2021-03-21 11:45 | Outpatient (CLI) | payer MEDICARE, SELFPAY ==
[2021-03-21 12:50] LABS: INR 1.6 (0.9-1.3); Prothrombin Time 18.5 SECONDS (10.1-12.7)
== END ==
PROVIDERS: Family Provider Orthopaedic Surgery; PCP Family Medicine; Referring Provider Family Medicine; Visit Provider Family Medicine
DX: Z79.01 Long term (current) use of anticoagulants (principal)
CPT/HCPCS: 36415; 85610

== ENCOUNTER → 2021-04-25 15:33 | Outpatient (CLI) | payer MEDICARE, SELFPAY ==
[2021-04-25 15:54] LABS: Add Manual Diff / Slide Review NO; Basophils Absolute Auto 100 /uL (0-100); Basophils Percent Auto 0.7 % (0-2); Eosinophils Absolute Auto 100 /uL (0-450); Eosinophils Percent Auto 1.3 % (2-4); Hematocrit 38.5 % (36-46); Hemoglobin 12.9 g/dL (12.0-16.0); Lymphocytes Absolute Auto 1300 /uL (1100-4500); Lymphocytes Percent Auto 16.3 % (25-40); Mean Corpuscular HGB Conc 33.5 % (30-36); Mean Corpuscular Hemoglobin 30.3 PG (26-34); Mean Corpuscular Volume 90.3 fL (80-100); Monocytes Absolute Auto 600 /uL (0-900); Monocytes Percent Auto 7.9 % (3-14); Neutrophils Absolute Auto 5900 /uL (1500-7000); Neutrophils Percent Auto 73.8 % (50-75); Platelet Count 280 X10^3/uL (150-400); Red Blood Cell Count 4.26 X10^6/uL (4.0-5.2); Red Cell Distribution Width 13.6 % (11.6-14.8)
[2021-04-25 16:04] LABS: Alanine Aminotransferase 14 IU/L (<35); Albumin 4.1 g/dL (3.5-5.0); Albumin Globulin Ratio 1.1 (1.0-2.8); Alkaline Phosphatase 58 U/L (38-126); Aspartate Aminotransferase 23 IU/L (14-36); BUN Creatinine Ratio 18.4 (6-22); Bilirubin Total 0.5 mg/dL (0.2-1.3); Blood Urea Nitrogen 19 mg/dL (7-17); Calcium 9.2 mg/dL (8.4-10.2); Carbon Dioxide 29 mmol/L (22-32); Chloride 103 mmol/L (98-107); Estimated Glomerular Filt Rate 52.5 mL/min (>60); Globulin 3.7 g/dL (1.7-4.1); Glucose 110 mg/dL (80-110); HEMOLYSIS < 15 (0-50); Potassium 4.4 mmol/L (3.4-5.1); Sodium 136 mmol/L (137-145); Total Protein 7.8 g/dL (6.3-8.2)
[2021-04-25 16:44] LABS: Free T3, Triiodothyronine Free 2.79 pg/mL (2.77-5.27); Free T4, Direct Thyroxine 1.58 ng/dL (0.78-2.19)
[2021-04-25 16:58] LABS: Thyroid Stimulating Hormone 0.987 uIU/mL (0.47-4.68)
== END ==
PROVIDERS: Family Provider Orthopaedic Surgery; PCP Family Medicine; Referring Provider Family Medicine; Visit Provider Family Medicine
DX: E03.9 Hypothyroidism, unspecified (principal); B94.8 Sequelae of other specified infectious and parasitic diseases; R53.83 Other fatigue
CPT/HCPCS: 36415; 80053; 84439; 84443; 84481; 85025

== ENCOUNTER → 2021-05-24 14:40 | Outpatient (CLI) | payer MEDICARE, SELFPAY ==
[2021-05-24 16:28] LABS: Free T3, Triiodothyronine Free 3.41 pg/mL (2.77-5.27); Free T4, Direct Thyroxine 2.26 ng/dL (0.78-2.19)
[2021-05-24 16:42] LABS: Thyroid Stimulating Hormone 0.218 uIU/mL (0.47-4.68)
[2021-05-24 18:33] LABS: Vitamin D 25 Hydroxy (D3) 103 ng/mL (30.0-100.0)
[2021-05-25 06:13] LABS: Thyroid Peroxidase Antibodies <8 IU/mL (0-34)
[2021-06-01 12:07] LABS: Thyroglobulin Level <2.0 ng/mL (.)
[2021-06-02 11:48] LABS: Triiodothyronine T3 Reverse 30.2 ng/dL (9.2-24.1)
== END ==
PROVIDERS: Family Provider Orthopaedic Surgery; PCP Family Medicine; Referring Provider Family Medicine; Visit Provider Family Medicine
DX: B94.8 Sequelae of other specified infectious and parasitic diseases (principal); E03.9 Hypothyroidism, unspecified; E55.9 Vitamin D deficiency, unspecified; F33.41 Major depressive disorder, recurrent, in partial remission; R53.83 Other fatigue
CPT/HCPCS: 36415; 82306; 84432; 84439; 84443; 84481; 84482; 86376

== ENCOUNTER → 2021-06-08 12:06 | Outpatient (CLI) | payer MEDICARE, SELFPAY ==
[2021-06-08 13:38] LABS: Hemoglobin A1C% w Est Avg Glu 5.4 % (4.0-6.0)
== END ==
PROVIDERS: Family Provider Orthopaedic Surgery; PCP Family Medicine; Referring Provider Family Medicine; Visit Provider Family Medicine
DX: R79.89 Other specified abnormal findings of blood chemistry (principal); Z68.32 Body mass index [BMI] 32.0-32.9, adult
CPT/HCPCS: 36415; 83036

== ENCOUNTER 2021-06-19 18:39 | Emergency (ER) | payer MEDICARE, SELFPAY ==
[2021-06-19 18:47] VITALS: BP 125/77; PULSE 68; RESP 20; TEMP 36.7; O2SAT 99; BMI 32.9
--- NOTE | 2021-06-19 18:52 | DI.RAD.S_ITS ---
PROCEDURE: XR WRIST RT MIN 3V INDICATIONS: Fall TECHNIQUE: Four views of the wrist were acquired. COMPARISON: None. FINDINGS: Comminuted and angulated fracture of the distal radial metaphysis with mild anterior displacement and volar angulation. IMPRESSION: Angulated comminuted and mildly displaced distal radius fracture. Dictated by: Alvin Byrd M.D. on 06/19/2021 at 19:30 Approved by: Alvin Byrd M.D. on 06/19/2021 at 19:31
[2021-06-19] MEDS: IBUPROFEN 400 MG TABLET PO ×2 (18:57→23:12)
[2021-06-19] MEDS: ACETAMINOPHEN 325 MG TABLET 650 MG PO (18:57)
--- NOTE | 2021-06-19 21:35 | ED_ITS ---
HPI - General Adult General Chief complaint: Extremity Injury, Upper Stated complaint: RIGHT WRIST INJURY FALL Time Seen by Provider: 06/19/21 20:00 Source: patient Mode of arrival: Ambulatory History of Present Illness HPI narrative: 71-year-old woman with history of hypothyroidism was out on her usual evening walk tripped over her shoe laces fell forward landing on both knees and landing on an outstretched right wrist. Significant pain and deformities to the right wrist. Minor abrasions to the knees complains of exacerbation to arthritis pain in the shoulders and the low back but no acute or new injuries. She did not hit her head. No recent fever, cough, chills, vomiting, diarrhea, abdominal pain, headaches, chest pain, palpitations, dyspnea, orthopnea or lower extremity edema Related Data Home Medications Medication Instructions Recorded Confirmed cholecalciferol (vitamin D3) 50 See Rx Instructions PO DAILY 10/09/18 06/19/21 mcg (2,000 unit) capsule Previous Rx's Medication Instructions Recorded alendronate 70 mg tablet (Fosamax) 70 mg PO QWEEK #12 tab 12/12/20 clobetasol 0.05 % topical ointment 1 applic TOPICAL HS #45 gram 04/21/21 levothyroxine 100 mcg tablet 100 mcg PO DAILY #90 tab 04/26/21 cyanocobalamin (vitamin B-12) 1,000 mcg IM QWEEK #1 ml 06/13/21 1,000 mcg/mL injection solution Allergies Allergy/AdvReac Type Severity Reaction Status Date / Time grass pollen [GRASS POLLEN] Allergy Mild ITCHING Verified 06/19/21 18:47 AND RED RASH citalopram [From Celexa] AdvReac Severe Zombie-like Verified 06/19/21 18:47 state and constipation heparin AdvReac Severe thrombocytopenia, Verified 06/19/21 18:47 autoimmune, SOB escitalopram [From Lexapro] AdvReac Intermediate made me Verified 06/19/21 18:47 feel sedated and sleepy. fluoxetine AdvReac Intermediate Rash Verified 06/19/21 18:47 Influenza Virus Vaccines AdvReac Intermediate FEVER, Verified 06/19/21 18:47 [INFLUENZA VIRUS VACCINES] ACHES AND PAINS AND WIPED OUT. I ENDED UP IN BED sertraline AdvReac Mild made me Verified 06/19/21 18:47 feel anxious and jittery. SMOKE Allergy Severe BLOOD SHOT Uncoded 06/19/21 18:47 EYES, SORE THROAT AND COUGHING dairy Allergy Mild upset Uncoded 06/19/21 18:47 stomach MORPHINE IV AdvReac Severe HIVES Uncoded 06/19/21 18:47 Review of Systems Review of Systems Narrative: Remainder of complete review of systems is otherwise unremarkable except for that included in the HPI. Patient History Medical History Acute left ankle pain Acute left-sided thoracic back pain Acute muscle stiffness of neck Acute neck pain Acute pain of right knee ADD (attention deficit disorder) (2007) B12 deficiency Bilateral leg cramps BMI 32.0-32.9,adult BMI 33.0-33.9,adult Cervical somatic dysfunction Chronic neck pain Claustrophobia Colon polyps (2005) Concussion Cranial somatic dysfunction Depression Dysuria Factor VII deficiency (Unknown) Fall from ground level Fibroids (1982) Groin pain, chronic, right Hearing loss High serum reverse triiodothyronine (rT3) History of urinary tract infection Hypothyroidism (1977) IBS (irritable bowel syndrome) (~2017) Iliotibial band syndrome, right leg Incontinence of urine in female Injury of left foot Lichen sclerosus of female genitalia (Unknown) Low back pain Melanoma (1952) Mitral valve prolapse (1987) Mixed incontinence urge and stress MRSA (methicillin resistant Staphylococcus aureus) (2007) Nocturia Osteopenia (2013) Overuse of medication Pelvic somatic dysfunction Persistent fatigue after COVID-19 Plantar warts (~1953) Post-traumatic headache, unspecified, intractable Postoperative pain after spinal surgery Recurrent UTI Rib pain Rib pain on left side Right buttock pain Right leg pain Right leg weakness Scoliosis (Unknown) Seasonal affective disorder (Unknown) Segmental and somatic dysfunction of abdomen and other regions Segmental and somatic dysfunction of lumbar region Segmental and somatic dysfunction of rib cage Segmental and somatic dysfunction of thoracic region Situational anxiety Somatic dysfunction of abdominal region Somatic dysfunction of lower extremity Somatic dysfunction of sacral spine Stiff neck Stress due to family tension Thyroid disease Urge incontinence Urinary incontinence (~2015) UTI (urinary tract infection) Vertigo Viral URI Weight loss counseling, encounter for Surgical History History of appendectomy History of hysterectomy History of surgical removal of ganglion cyst (Unknown) S/P total abdominal hysterectomy and bilateral salpingo-oophorectomy Status post appendectomy Family History Brother Alcoholism /alcohol abuse Sleep apnea Hypertension Depression Father History of diabetes mellitus History of heart disease History of high blood pressure History of hyperlipidemia History of abdominal aortic aneurysm (AAA) Loud snoring Diabetes mellitus Depression Cancer Mother History of colon cancer History of sleep apnea Loud snoring Sleep apnea Depression Social History marital status: number of children: 1 household members: none occupational status: other Smoking Status: Never smoker second hand exposure: No alcohol intake: never substance use type: does not use caffeine: Yes Type(s) of exercise: walking frequency: 5-6 times per week duration: 60-90 minutes/day Smoking Status: Never smoker alcohol intake frequency: holidays/special occasions only Substance Use Type: does not use Exam Initial Vital Signs Initial Vital Signs: Vital Signs Temperature 98.0 F 06/19/21 18:47 Pulse Rate 68 06/19/21 18:47 Respiratory Rate 20 06/19/21 18:47 Blood Pressure 125/77 06/19/21 18:47 Pulse Oximetry 99 06/19/21 18:47 General: Alert appropriate in no acute distress Respiratory: Able to speak in full sentences, no obvious respiratory distress Skin: No obvious rashes, warm and dry. Minor abrasion and contusion bilaterally to her knees left greater than right Extremity: Pain and deformity at the right wrist neurovascularly intact distally. No obvious bony injury to remainder of upper or lower extremities. Neurologic: Grossly intact no obvious asymmetries or abnormalities Psych: appropriate insight and affect, cooperative Procedures Orthopedic Splinting/Casting Left wrist fracture: Time of procedure: 23:20 Side: left Upper Extremity Injury Location: wrist Upper Extremity Immobilizer: sling/shoulder immobilizer and volar splint Post splinting neuro exam: intact Post splinting vascular exam: intact Placed by: Nursing Course Orders Ordered: ED Orders 06/19/21 18:52 XR wrist RT min 3V Stat Discontinued Medications Acetaminophen (Acetaminophen 325 Mg Tablet) 650 mg PO NOW ONE Stop: 06/19/21 18:54 Last Admin: 06/19/21 18:57 Dose: 650 mg Documented by: ADRIANO Ibuprofen (Ibuprofen 400 Mg Tablet) 400 mg PO NOW ONE Stop: 06/19/21 18:54 Last Admin: 06/19/21 18:57 Dose: 400 mg Documented by: ADRIANO Ibuprofen (Ibuprofen 400 Mg Tablet) 400 mg PO NOW ONE Stop: 06/19/21 22:55 Last Admin: 06/19/21 23:12 Dose: 400 mg Documented by: Oxycodone HCl (Oxycodone Ir 5 Mg Tablet) 5 mg PO NOW ONE Stop: 06/19/21 21:40 Last Admin: 06/19/21 21:52 Dose: 5 mg Documented by: KAYLEY Oxycodone/Acetaminophen (Oxycodone/Acetaminophen 5/325 Tablet) 1 tab PO NOW ONE Stop: 06/19/21 22:55 Last Admin: 06/19/21 23:12 Dose: 1 tab Documented by: Oxycodone/Acetaminophen (Oxycodone/Apap 5/325 Prepack) 1 bottle MISC SEEINSTR ONE Stop: 06/19/21 22:55 Last Admin: 06/19/21 23:12 Dose: 1 bottle Documented by: Vital Signs Vital signs: Vital Signs - 8 hr 06/19/21 18:47 Temperature 98.0 F Pulse Rate 68 Respiratory Rate 20 Blood Pressure 125/77 Pulse Oximetry 99 Medical Decision Making Imaging Data X-ray wrist: Radiologist's Impression: FINDINGS:? ? Comminuted and angulated fracture of the distal radial metaphysis with mild anterior displacement and volar angulation. ? IMPRESSION:? Angulated comminuted and mildly displaced distal radius fracture. ? ? Dictated by: Alvin Byrd M.D. on 06/19/2021 at 19:30 ?? [facility] Narrative Medical decision making narrative: 71-year-old woman with mechanical fall on outstretched right arm suffering a angulated, comminuted, displaced distal radial fracture. Pain is controlled with ibuprofen and Percocet. She is given Percocet to go home with. Strongly recommended that she get stool softeners or increase the amount of prunes that she has daily eating each day that she is using narcotic. Her wrist is splinted and she is given a sling. She will need follow-up with Orthopedic surgery for definitive treatment of this fracture. It does not appear to be intra-articular however may be angulated enough that they will do some type of intervention beyond casting. Discharge Plan Departure Patient Disposition: Home Clinical Impression: Fracture of wrist Qualifiers: Encounter type: initial encounter Fracture type: closed Laterality: left Qualified Code(s): S62.102A - Fracture of unspecified carpal bone, left wrist, initial encounter for closed fracture Fall Qualifiers: Encounter type: initial encounter Qualified Code(s): W19.XXXA - Unspecified fall, initial encounter Contusion of knee, left Qualifiers: Encounter type: initial encounter Qualified Code(s): S80.02XA - Contusion of left knee, initial encounter Contusion of knee, right Qualifiers: Encounter type: initial encounter Qualified Code(s): S80.01XA - Contusion of right knee, initial encounter Instructions: DI for Wrist Fracture Activity Restrictions/Additional Instructions: Thank you for coming in today Unfortunately, you broke your wrist with your fall this evening Fortunately, it does not look like the fracture itself extends into the joint. You were placed in a splint to immobilize the wrist and a sling for comfort. Ice on the outside of the splint can be helpful for the inflammation and pain. Using 400 mg of ibuprofen (2 [id number] pills) and 1 Tylenol every 6 hour s can be very helpful in controlling pain. For severe pain you can use to ibuprofen and 1 Percocet. Percocet has Tylenol and oxycodone in it. Oxycodone is a narcotic and narcotics will make you constipated. I would recommend adding extra prunes or a stool softener on the days that you are using Percocet. You need to contact [facility] at [phone] to schedule an appointment for definitive treatment of your wrist fracture. They will re-x-ray the wrist and decide if you do need any type of surgical intervention or simply casting. Please call tomorrow to arrange the ap pointment. If you have any new or worsening symptoms please feel free to return to the emergency department Prescriptions: No Action alendronate [Fosamax] 70 mg tablet 70 mg PO QWEEK Qty: 12 5RF levothyroxine 100 mcg tablet 100 mcg PO DAILY Qty: 90 3RF cyanocobalamin (vitamin B-12) 1,000 mcg/mL solution 1,000 mcg IM QWEEK Qty: 1 0RF cholecalciferol (vitamin D3) 2,000 unit capsule See Rx Instructions PO DAILY 0RF Rx Instructions: 3 to 4 tabs PO daily. clobetasol 0.05 % ointment 1 applic Topical HS Qty: 45 1RF Referrals: Samm Gutierrez DO [Primary Care Provider] -
[2021-06-19] MEDS: OXYCODONE IR 5 MG TABLET PO (21:52)
[2021-06-19] MEDS: OXYCODONE/APAP 5/325 PREPACK 1 BOTTLE MISC (23:12)
[2021-06-19] MEDS: OXYCODONE/ACETAMINOPHEN 5/325 TABLET 1 TAB PO (23:12)
[2021-06-19 23:23] VITALS: BP 159/77; PULSE 75; RESP 18; O2SAT 99
== END 2021-06-19 23:41 | disposition home or self-care (01) ==
PROVIDERS: Emergency Provider Emergency Medicine; Family Provider Orthopaedic Surgery; PCP Family Medicine
DX: S62.102A Fracture of unspecified carpal bone, left wrist, initial encounter for closed fracture (principal); S80.02XA Contusion of left knee, initial encounter; S80.01XA Contusion of right knee, initial encounter; S80.212A Abrasion, left knee, initial encounter; S80.211A Abrasion, right knee, initial encounter; W01.0XXA Fall on same level from slipping, tripping and stumbling without subsequent striking against object, initial encounter
CPT/HCPCS: 73110; 99283

== ENCOUNTER → 2021-09-04 14:46 | Outpatient (ROUT) | payer MEDICARE, SELFPAY ==
[2021-09-04 16:02] LABS: Free T3, Triiodothyronine Free 4.09 pg/mL (2.77-5.27); Free T4, Direct Thyroxine 2.58 ng/dL (0.78-2.19)
[2021-09-04 16:15] LABS: Thyroid Stimulating Hormone < 0.015 uIU/mL (0.47-4.68)
[2021-09-15 13:46] LABS: Triiodothyronine T3 Reverse 35.4 ng/dL (9.2-24.1)
== END ==
PROVIDERS: Family Provider Orthopaedic Surgery; PCP Family Medicine; Visit Provider Family Medicine
DX: E03.9 Hypothyroidism, unspecified (principal)
CPT/HCPCS: 84439; 84443; 84481; 84482

== ENCOUNTER → 2022-01-01 17:12 | Outpatient (CLI) | payer MEDICARE, SELFPAY ==
[2022-01-01 18:12] LABS: Influenza A - CEPHEID Flu A NEGATIVE (NEGATIVE); Influenza B - CEPHEID Flu B NEGATIVE (NEGATIVE); Respiratory Syncytial Virus Negative (Negative)
[2022-01-01 18:28] LABS: COVID-19 CEPHEID 4-PLEX PCR Negative (Negative)
== END ==
PROVIDERS: Family Provider Orthopaedic Surgery; PCP Family Medicine; Visit Provider Nurse Practitioner Family
DX: R05.1 Acute cough (principal); Z20.828 Contact with and (suspected) exposure to other viral communicable diseases
CPT/HCPCS: 0241U

== ENCOUNTER → 2022-02-19 16:29 | Outpatient (CLI) | payer MEDICARE, SELFPAY | PROVIDERS: Family Provider Orthopaedic Surgery; PCP Family Medicine; Visit Provider Family Medicine | DX: N89.8 Other specified noninflammatory disorders of vagina (principal); R30.0 Dysuria | CPT/HCPCS: 87077; 87086; 87186; 87210 ==

== ENCOUNTER → 2022-03-28 11:48 | Outpatient (CLI) | payer MEDICARE, SELFPAY ==
[2022-03-28 12:54] LABS: Free T3, Triiodothyronine Free 4.54 pg/mL (2.77-5.27); Free T4, Direct Thyroxine 3.18 ng/dL (0.78-2.19)
[2022-03-28 13:13] LABS: Thyroid Stimulating Hormone < 0.015 uIU/mL (0.47-4.68)
== END ==
PROVIDERS: Family Provider Orthopaedic Surgery; PCP Family Medicine; Referring Provider Family Medicine; Visit Provider Family Medicine
DX: E03.9 Hypothyroidism, unspecified (principal)
CPT/HCPCS: 36415; 84439; 84443; 84481

== ENCOUNTER → 2022-04-03 09:06 | Outpatient (CLI) | payer MEDICARE, SELFPAY | PROVIDERS: Family Provider Orthopaedic Surgery; PCP Family Medicine; Visit Provider Family Medicine | DX: R30.0 Dysuria (principal) | CPT/HCPCS: 87086 ==

== ENCOUNTER → 2022-12-12 11:17 | Outpatient (CLI) | payer MEDICARE, SELFPAY ==
[2022-12-12 14:04] LABS: Appearance Urine UA CLEAR; Bilirubin Urine UA NEGATIVE (NEGATIVE); Color Urine UA YELLOW; Glucose Urine UA NEGATIVE (Negative); Ketones Urine UA NEGATIVE (NEGATIVE); Leukocyte Esterase Urine UA NEGATIVE (NEGATIVE); Nitrite Urine UA NEGATIVE (Negative); Occult Blood Urine UA 2+ (Negative); Protein Urine UA NEGATIVE (Negative); Specific Gravity Urine UA 1.015 (1.000-1.035); Urobilinogen Urine UA 0.2 E.U./dL (0.2)
[2022-12-12 14:21] LABS: Bacteria Urine None Seen; RBC Urine 10-30/HPF (0-5/HPF); Squamous Epithelial Cell Urine None Seen (0-5/HPF); WBC Urine 0-1/HPF (0-5/HPF)
[2022-12-12 14:22] LABS: Culture Indicated Urine Cult Not Indicated
== END ==
PROVIDERS: Family Provider Orthopaedic Surgery; PCP Family Medicine; Visit Provider Family Medicine
DX: R82.998 Other abnormal findings in urine (principal); R82.90 Unspecified abnormal findings in urine
CPT/HCPCS: 81001

== ENCOUNTER → 2022-12-20 14:28 | Outpatient (CLI) | payer MEDICARE, SELFPAY ==
[2022-12-20 18:31] LABS: Appearance Urine UA CLEAR; Bilirubin Urine UA NEGATIVE (NEGATIVE); Color Urine UA YELLOW; Glucose Urine UA NEGATIVE (Negative); Ketones Urine UA NEGATIVE (NEGATIVE); Leukocyte Esterase Urine UA TRACE (NEGATIVE); Nitrite Urine UA NEGATIVE (Negative); Occult Blood Urine UA TRACE-INTACT (Negative); Protein Urine UA NEGATIVE (Negative); Specific Gravity Urine UA 1.025 (1.000-1.035); Urobilinogen Urine UA 0.2 E.U./dL (0.2)
[2022-12-20 18:50] LABS: pH Urine UA 5.5 (4.5-8.0)
[2022-12-20 19:02] LABS: RBC Urine 1-5/HPF (0-5/HPF)
[2022-12-20 19:03] LABS: Bacteria Urine None Seen; Culture Indicated Urine Cult Not Indicated; Squamous Epithelial Cell Urine 0-1 /HPF (0-5/HPF); Uric Acid Crystals Urine Few; WBC Urine 0-1/HPF (0-5/HPF)
== END ==
PROVIDERS: Family Provider Orthopaedic Surgery; PCP Family Medicine; Referring Provider Student in an Organized Health Care Education/Training Program; Visit Provider Student in an Organized Health Care Education/Training Program
DX: N39.0 Urinary tract infection, site not specified (principal); R35.0 Frequency of micturition; N30.00 Acute cystitis without hematuria
CPT/HCPCS: 81001; 87086

== ENCOUNTER → 2022-12-25 14:29 | Outpatient (CLI) | payer MEDICARE, SELFPAY ==
--- NOTE | 2022-12-25 14:32 | DI.CT.S_ITS ---
PROCEDURE: CT KIDNEY URETER BLADDER (KUB) INDICATIONS: kidney stones TECHNIQUE: Axial sections were acquired from the lung bases to the pubic symphysis. Coronal and sagittal reformats were performed. For radiation dose reduction, the following was used: automated exposure control, adjustment of mA and/or kV according to patient size. COMPARISON: [facility] [place], [place], LUMBAR TRANSFORAMINAL GARY, 11/20/2018, 10:44. FINDINGS: Image quality: Excellent. Lung bases: Unremarkable. Heart: No significant findings. URINARY: Right Kidney: No stones or hydronephrosis. Right Ureter: No hydroureter. Left Kidney: No stones or hydronephrosis. Left Ureter: No hydroureter. There is a 3 mm calcification adjacent to the distal left ureter, compatible with a phlebolith. Bladder: Normal wall thickness. No stones. ABDOMEN: Liver: Unremarkable. Gallbladder: There is gallbladder sludge. No radiopaque gallstones. Biliary ducts: Unremarkable. Pancreas: Unremarkable. Spleen: Unremarkable. Adrenal Glands: Unremarkable. Stomach and Bowel: Stomach, small bowel loops, and colon are unremarkable. Diverticulosis without acute diverticulitis. Moderate amount of stool in colon Peritoneum: There are surgical clips in mid to lower abdomen at midline. Mild mesenteric stranding. No abnormal intraperitoneal fluid. No free air. Ventral Wall: No hernia. Abdominal Nodes: No enlarged retroperitoneal or mesenteric lymph nodes. Vessels: Aorta and inferior vena cava are normal in size. PELVIS: Pelvic Organs: Unremarkable. Pelvic Nodes: Unremarkable. Miscellaneous: No inguinal hernias are seen. Bones: Grade 1 anterolisthesis of L4 on L5. Mild levoscoliosis. Degenerative changes and postsurgical in lumbar spine. IMPRESSION: 1. No urinary stones or hydronephrosis. 2. Diverticulosis without acute diverticulitis. 3. Moderate amount of stool in colon. 4. Scoliosis. Degenerative and postsurgical changes in lumbar spine. Dictated by: Sai Mcclendon M.D. on 12/25/2022 at 17:00 Approved by: Sai Mcclendon M.D. on 12/25/2022 at 18:23
[2022-12-25 15:31] LABS: BUN Creatinine Ratio 33.3 (6-22); Blood Urea Nitrogen 32 mg/dL (7-17); Calcium 9.5 mg/dL (8.4-10.2); Carbon Dioxide 25 mmol/L (22-32); Chloride 103 mmol/L (98-107); Estimated Glomerular Filt Rate > 60 mL/min (>60); Glucose 115 mg/dL (80-110); HEMOLYSIS < 15 (0-50); Potassium 4.6 mmol/L (3.4-5.1); Sodium 136 mmol/L (137-145); Uric Acid 5.7 mg/dL (2.5-6.2)
== END ==
PROVIDERS: Family Provider Orthopaedic Surgery; PCP Family Medicine; Referring Provider Family Medicine; Visit Provider Family Medicine
DX: N20.0 Calculus of kidney (principal); K57.90 Diverticulosis of intestine, part unspecified, without perforation or abscess without bleeding; M41.9 Scoliosis, unspecified; M47.816 Spondylosis without myelopathy or radiculopathy, lumbar region
CPT/HCPCS: 36415; 74176; 80048; 84550

== ENCOUNTER → 2023-03-13 13:38 | Outpatient (CLI) | payer MEDICARE, SELFPAY | PROVIDERS: Family Provider Orthopaedic Surgery; PCP Family Medicine; Visit Provider Nurse Practitioner Family | DX: R39.15 Urgency of urination (principal) | CPT/HCPCS: 87086 ==

== ENCOUNTER → 2023-03-28 15:02 | Outpatient (CLI) | payer MEDICARE, SELFPAY ==
[2023-03-28 15:28] LABS: Add Manual Diff / Slide Review NO; Basophils Absolute Auto 100 /uL (0-100); Basophils Percent Auto 0.9 % (0-2); Eosinophils Absolute Auto 300 /uL (0-450); Eosinophils Percent Auto 3.7 % (2-4); Hematocrit 35.5 % (36-46); Hemoglobin 11.9 g/dL (12.0-16.0); Lymphocytes Absolute Auto 1800 /uL (1100-4500); Lymphocytes Percent Auto 26.3 % (25-40); Mean Corpuscular HGB Conc 33.4 % (30-36); Mean Corpuscular Hemoglobin 30.3 PG (26-34); Mean Corpuscular Volume 90.5 fL (80-100); Monocytes Absolute Auto 600 /uL (0-900); Neutrophils Absolute Auto 4100 /uL (1500-7000); Neutrophils Percent Auto 60.1 % (50-75); Platelet Count 323 X10^3/uL (150-400); Red Blood Cell Count 3.92 X10^6/uL (4.0-5.2); Red Cell Distribution Width 13.1 % (11.6-14.8); White Blood Cell Count 6.9 X10^3/uL (4.5-11.0)
[2023-03-28 16:02] LABS: Alanine Aminotransferase 15 IU/L (<35); Albumin Globulin Ratio 1.3 (1.0-2.8); Alkaline Phosphatase 56 U/L (38-126); Aspartate Aminotransferase 22 IU/L (14-36); BUN Creatinine Ratio 18.7 (6-22); Bilirubin Total 0.4 mg/dL (0.2-1.3); Blood Urea Nitrogen 32 mg/dL (7-17); Calcium 9.2 mg/dL (8.4-10.2); Carbon Dioxide 26 mmol/L (22-32); Chloride 105 mmol/L (98-107); Cholesterol 215 mg/dL (140-199); Estimated Glomerular Filt Rate 31 mL/min (>60); Globulin 3.2 g/dL (1.7-4.1); Glucose 86 mg/dL (80-110); HDL Cholesterol 62 mg/dL (40-60); HEMOLYSIS < 15 (0-50); LDL Cholesterol Calculated 130 mg/dL (<100); Sodium 142 mmol/L (137-145); Total Protein 7.2 g/dL (6.3-8.2); Triglycerides 114 mg/dL (35-150)
[2023-03-28 16:29] LABS: TSH w/ Reflex to FT4 0.06 uIU/mL (0.47-4.68)
[2023-03-28 17:52] LABS: Free T4, Direct Thyroxine 2.27 ng/dL (0.78-2.19)
== END ==
PROVIDERS: Family Provider Orthopaedic Surgery; PCP Family Medicine; Referring Provider Family Medicine; Visit Provider Family Medicine
DX: E03.9 Hypothyroidism, unspecified (principal); E78.5 Hyperlipidemia, unspecified
CPT/HCPCS: 36415; 80053; 80061; 84439; 84443; 85025

== ENCOUNTER 2023-04-12 11:09 | Day surgery (SDC) | payer MEDICARE, SELFPAY ==
[2023-04-12 11:45] VITALS: BP 122/82; PULSE 73; RESP 17; TEMP 35.9; O2SAT 97
[2023-04-12 12:16] LABS: BUN Creatinine Ratio 18.1 (6-22); Blood Urea Nitrogen 17 mg/dL (7-17); Calcium 9.7 mg/dL (8.4-10.2); Carbon Dioxide 29 mmol/L (22-32); Chloride 104 mmol/L (98-107); Estimated Glomerular Filt Rate > 60 mL/min (>60); Glucose 88 mg/dL (80-110); HEMOLYSIS < 15 (0-50); Sodium 140 mmol/L (137-145)
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
[2023-04-12 14:09] VITALS: BP 107/65; PULSE 64; RESP 16; TEMP 36.2; O2SAT 98
[2023-04-12 14:10] VITALS: BP 130/60; PULSE 65; RESP 16; TEMP 36.8; O2SAT 98
--- NOTE | 2023-04-12 14:12 | P.OP.COLON_ITS ---
Operative Date/Time/Diagnoses Date of procedure: 04/12/23 Time of procedure: 14:12 Pre-op diagnosis: Family history of colon cancer Procedure & Clinicians Study performed: Colonoscopy Same procedure as scheduled: Yes Indications: Colorectal screening Family history of colon cancer Surgeon: Luis Miguel Crump Procedure Notes Procedure in detail: The history and physical was performed/updated and the patient is ASA class is 2. The procedure was discussed in detail with the patient. Potential risks complications including infection, bleeding, missed diagnosis, perforation, need for surgery, and were explained. Their questions were answered and informed consent was obtained. Patient was brought to the procedure room and placed standard monitoring equipment. The patient's vital signs were monitored continuously throughout the entire procedure. Prior to starting time-out was performed. The patient was placed in the left lateral recumbent position. Procedural sedation was administered by anesthesia. Examination began with a thorough inspection of the perianal area there was no evidence of fissures, fistulae, external hemorrhoids or cutaneous malignancy. The colonoscopy scope was then placed into the anal canal and was advanced to the cecum, which was identified by the ileocecal valve, the appendiceal orifice and the confluence of the taenia. The scope was then slowly withdrawn examining colon thoroughly in all directions, irrigating it of any residual stool. The scope was retroflexed within the rectum The patient tolerated the procedure well. They will be discharged once criteria are met. The prep was of good/excellent quality. The withdrawl time was 7 minutes. FINDINGS * Sigmoid mild diverticulosis * Internal hemorrhoids Specimen(s): none sent Impression: Normal colonoscopy Post-procedure Plan for aftercare: Repeat colonoscopy 5 years if medically fit Disposition: same day surgery
[2023-04-12 14:28] VITALS: BP 135/75; PULSE 80; RESP 16; TEMP 36.8; O2SAT 98
== END 2023-04-12 14:30 | disposition home or self-care (01) ==
PROVIDERS: Anesthesiology; Surgery; Family Provider Orthopaedic Surgery; PCP Family Medicine; Referring Provider Surgery; Visit Provider Surgery
PROC: 0DJD8ZZ Inspection of Lower Intestinal Tract, Via Natural or Artificial Opening Endoscopic (ICD-10-PCS; CPT 45378; principal; 2023-04-12 11:45)
DX: Z12.11 Encounter for screening for malignant neoplasm of colon (principal); Z86.010 Personal history of colon polyps; Z80.0 Family history of malignant neoplasm of digestive organs; K57.30 Diverticulosis of large intestine without perforation or abscess without bleeding; K64.8 Other hemorrhoids
CPT/HCPCS: G0105; 80048; J2704

== ENCOUNTER → 2023-07-18 15:04 | Outpatient (CLI) | payer MEDICARE, SELFPAY ==
[2023-07-18 16:11] LABS: Hematocrit 37.7 % (36-46); Hemoglobin 12.8 g/dL (12.0-16.0); Mean Corpuscular HGB Conc 34.1 % (30-36); Mean Corpuscular Hemoglobin 30.7 PG (26-34); Platelet Count 298 X10^3/uL (150-400); Red Blood Cell Count 4.18 X10^6/uL (4.0-5.2)
[2023-07-18 16:45] LABS: Blood Urea Nitrogen 25 mg/dL (7-17); Calcium 9.3 mg/dL (8.4-10.2); Carbon Dioxide 26 mmol/L (22-32); Chloride 109 mmol/L (98-107); Estimated Glomerular Filt Rate 34 mL/min (>60); Glucose 92 mg/dL (80-110); HEMOLYSIS < 15 (0-50); Potassium 4.3 mmol/L (3.4-5.1); Sodium 138 mmol/L (137-145)
[2023-07-18 17:02] LABS: Vitamin D 25 Hydroxy (D3) 100 ng/mL (30.0-100.0)
[2023-07-18 17:34] LABS: TSH w/ Reflex to FT4 0.02 uIU/mL (0.47-4.68)
[2023-07-18 17:59] LABS: Free T4, Direct Thyroxine 2.39 ng/dL (0.78-2.19)
[2023-07-18 19:28] LABS: Hemoglobin A1C% w Est Avg Glu 5.5 % (4.0-6.0)
== END ==
PROVIDERS: PCP Family Medicine; Referring Provider Nurse Practitioner Family; Visit Provider Nurse Practitioner Family
DX: E78.5 Hyperlipidemia, unspecified (principal); I10 Essential (primary) hypertension; E03.9 Hypothyroidism, unspecified; R53.83 Other fatigue; F33.9 Major depressive disorder, recurrent, unspecified; F32.9 Major depressive disorder, single episode, unspecified
CPT/HCPCS: 80048; 82306; 83036; 84439; 84443; 85027

== ENCOUNTER → 2023-07-31 12:41 | Outpatient (CLI) | payer MEDICARE, SELFPAY ==
--- NOTE | 2023-07-31 12:43 | DI.RAD.S_ITS ---
PROCEDURE: XR HIP W PEL IF DONE ALEX MIN 4V INDICATIONS: hip pain TECHNIQUE: AP pelvis with lateral view(s) of the bilateral hip(s). COMPARISON: None. FINDINGS: Bones: No fractures or dislocations. Pelvic ring appears intact. There is mild bilateral hip joint space narrowing. No suspicious bony lesions. Spinal fixation hardware is grossly intact. Soft tissues: The visualized bowel gas pattern is normal. No suspicious soft tissue calcifications. IMPRESSION: Mild bilateral hip osteoarthritis. No acute radiographic findings. Dictated by: Sheila Sesay M.D. on 07/31/2023 at 15:17 Approved by: Sheila Sesay M.D. on 07/31/2023 at 15:17
== END ==
PROVIDERS: PCP Family Medicine; Referring Provider Family Medicine; Visit Provider Family Medicine
DX: M16.0 Bilateral primary osteoarthritis of hip (principal); M54.41 Lumbago with sciatica, right side; R10.31 Right lower quadrant pain; M79.18 Myalgia, other site; M76.31 Iliotibial band syndrome, right leg; G89.29 Other chronic pain
CPT/HCPCS: 73522

== ENCOUNTER → 2023-09-16 10:56 | Outpatient (CLI) | payer MEDICARE, SELFPAY ==
[2023-09-16 21:37] LABS: Free T3, Triiodothyronine Free 3.57 pg/mL (2.77-5.27)
[2023-09-16 21:53] LABS: Thyroid Stimulating Hormone < 0.015 uIU/mL (0.47-4.68)
[2023-09-17 19:36] LABS: Anti Thyroglobulin Antibody <1.0 IU/mL (0.0-0.9); Thyroid Peroxidase Antibodies <9 IU/mL (0-34)
== END ==
PROVIDERS: PCP Family Medicine; Referring Provider Family Medicine; Visit Provider Family Medicine
DX: E03.9 Hypothyroidism, unspecified (principal); R79.89 Other specified abnormal findings of blood chemistry; L65.9 Nonscarring hair loss, unspecified
CPT/HCPCS: 36415; 84439; 84443; 84481; 84482; 86376; 86800

== ENCOUNTER → 2023-09-20 07:39 | Outpatient (CLI) | payer MEDICARE, SELFPAY ==
[2023-09-20 09:05] LABS: Cortisol AM (Before 10AM) 21.5 ug/dL (4.46-22.7)
== END ==
PROVIDERS: PCP Family Medicine; Referring Provider Family Medicine; Visit Provider Family Medicine
DX: E03.9 Hypothyroidism, unspecified (principal); R79.89 Other specified abnormal findings of blood chemistry; L65.9 Nonscarring hair loss, unspecified
CPT/HCPCS: 36415; 82533

== ENCOUNTER → 2023-10-09 15:14 | Outpatient (CLI) | payer MEDICARE, SELFPAY ==
[2023-10-09 17:36] LABS: Free T3, Triiodothyronine Free 2.89 pg/mL (2.77-5.27); Free T4, Direct Thyroxine 1.92 ng/dL (0.78-2.19)
[2023-10-09 17:50] LABS: Thyroid Stimulating Hormone 0.219 uIU/mL (0.47-4.68)
== END ==
PROVIDERS: PCP Family Medicine; Referring Provider Family Medicine; Visit Provider Family Medicine
DX: E03.9 Hypothyroidism, unspecified (principal)
CPT/HCPCS: 84439; 84443; 84445; 84481

== ENCOUNTER → 2023-11-21 08:59 | Outpatient (CLI) | payer MEDICARE, SELFPAY ==
[2023-11-21 10:57] LABS: Alanine Aminotransferase 33 IU/L (<35); Albumin 3.7 g/dL (3.5-5.0); Albumin Globulin Ratio 1.2 (1.0-2.8); Alkaline Phosphatase 57 U/L (38-126); Aspartate Aminotransferase 31 IU/L (14-36); BUN Creatinine Ratio 25.5 (6-22); Bilirubin Total 0.4 mg/dL (0.2-1.3); Blood Urea Nitrogen 25 mg/dL (7-17); Calcium 9.7 mg/dL (8.4-10.2); Carbon Dioxide 29 mmol/L (22-32); Chloride 102 mmol/L (98-107); Estimated Glomerular Filt Rate > 60 mL/min (>60); Globulin 3.1 g/dL (1.7-4.1); Glucose 98 mg/dL (80-110); HEMOLYSIS < 15 (0-50); Potassium 4.7 mmol/L (3.4-5.1); Sodium 134 mmol/L (137-145); Total Protein 6.8 g/dL (6.3-8.2)
[2023-11-21 11:22] LABS: Free T3, Triiodothyronine Free 3.78 pg/mL (2.77-5.27); Free T4, Direct Thyroxine 1.47 ng/dL (0.78-2.19)
== END ==
PROVIDERS: PCP Family Medicine; Referring Provider Family Medicine; Visit Provider Family Medicine
DX: E03.9 Hypothyroidism, unspecified (principal); N18.30 Chronic kidney disease, stage 3 unspecified
CPT/HCPCS: 36415; 80053; 84156; 84166; 84439; 84443; 84481

== ENCOUNTER → 2023-11-22 12:06 | Outpatient (CLI) | payer MEDICARE, SELFPAY ==
[2023-11-22 13:46] LABS: Creatinine Urine Random 68.67 mg/dL
[2023-11-22 13:55] LABS: Microalbumin Urine Random < 0.6 mg/dL (0-1.6)
== END ==
PROVIDERS: PCP Family Medicine; Referring Provider Family Medicine; Visit Provider Family Medicine
DX: N18.30 Chronic kidney disease, stage 3 unspecified (principal)
CPT/HCPCS: 82043; 82570

== ENCOUNTER → 2024-02-06 18:05 | Outpatient (CLI) | payer MEDICARE, SELFPAY | PROVIDERS: PCP Family Medicine; Visit Provider Physician Assistant Medical | DX: R30.0 Dysuria (principal) | CPT/HCPCS: 87077; 87086 ==

== ENCOUNTER → 2024-03-17 09:06 | Outpatient (CLI) | payer MEDICARE, SELFPAY | PROVIDERS: Visit Provider Nurse Practitioner Family | DX: R30.0 Dysuria (principal) | CPT/HCPCS: 87086 ==

== ENCOUNTER 2025-01-04 06:31 | Day surgery (SDC) | payer MEDICARE, SELFPAY ==
[2024-12-17 13:08] VITALS: BMI 33.7
--- NOTE | 2024-12-31 12:58 | PM.GYNHP.1 ---
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 me Verified 11/18/24 08:39 feel sedated and sleepy. fluoxetine AdvReac Intermediate Rash Verified 11/18/24 08:39 Influenza Virus Vaccines AdvReac Intermediate FEVER, Verified 11/18/24 08:39 (INFLUENZA VIRUS VACCINES) ACHES AND PAINS AND WIPED OUT. I ENDED UP IN BED venlafaxine AdvReac Intermediate Verified 11/18/24 08:39 sertraline AdvReac Mild made me Verified 11/18/24 08:39 feel anxious and jittery. SMOKE Allergy Severe BLOOD SHOT Uncoded 11/18/24 08:39 EYES, SORE THROAT AND COUGHING dairy Allergy Mild upset Uncoded 11/18/24 08:39 stomach MORPHINE IV AdvReac Severe HIVES Uncoded 11/18/24 08:39 Assessment & Plan Assessment and plan (1) Stress incontinence, female: Status: Acute Time-Based Coding :: [TOTAL MINUTES] spent with patient and on the chart (including review of chart, obtaining history, exam, reviewing outside data, placing orders, documenting exam and treatment plan, and counseling patient) on [DATE].
[2025-01-04] VITALS (9 sets, daily range): BP systolic 108–146; BP diastolic 62–79; PULSE 56–76; RESP 14–16; TEMP 36.1–36.4; O2SAT 94–97
[2025-01-04] MEDS: ACETAMINOPHEN 325 MG TABLET 975 MG PO (07:15)
[2025-01-04] MEDS: LACTATED RINGERS 1,000 ML 42 ML IV ×2 (07:16→08:51)
--- NOTE | 2025-01-04 07:42 | PM.PREOP ---
Pre-operative Note Interval Note History & Physical reviewed/Exam performed by Physician: Yes Changes to H&P: No
--- NOTE | 2025-01-04 08:26 | SUR.OPER ---
Per patient: bruising to lower right lateral leg, scattered, mostly healed scrapes to bilateral lower legs. Visualized: lichens sclerosis to vulva- tissue friable, reddened, and crusted prior to vaginal/perineal prep. Contact with prep products appears to have caused friable vulva tissue to bleed, noted by surgeon on visual and manual exam.
--- NOTE | 2025-01-04 08:34 | SUR.OPER ---
Lithotomy on padded OR bed, head on pillow, arms secured on padded arm boards at <90 degrees abduction, security strap across abdomen. Legs secured in padded yellow fins stirrups per Dr Barahona. Surgeon approved final position prior to start of procedure.
[2025-01-04] MEDS: LIDOCAINE 1% W/EPI 10ML 20 ML INJ (08:45)
--- NOTE | 2025-01-04 09:26 | P.OP_ITS ---
Operative Date/Time/Diagnoses Date of procedure: 01/04/25 Time of procedure: 08:00 Pre-op diagnosis: Stress incontinence Post-op diagnosis: same Procedure & Clinicians Procedure: Procedures Operation Date: 01/04/25 07:45 Actual Procedure Side Surgeon p mid urethral sling, cystoscopy Cameron Barahona MD Operative Notes Findings: Operative Note Surgeon:? Cameron Barahona MD Plant Security Guard: Su Merrill MD Pre-Op Diagnosis:?? Stress incontinence Post-Op Diagnosis:?? Same? Procedure:?? TVT mid-urethral sling, cystoscopy Findings (brief): ? 1.? TVT sling placed at mid-urethra, tension-free ? 2.? Cystoscopy with normal bladder, ureters, urethra, no trocar injury 3. 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 She has clobetasol. Might need to use more often Date of Surgery:? January 04, 2025 Complications:? None Specimens:? None Anesthesia Technique:?? General endotracheal Estimated Blood Loss (mls):? 50 Blood Replacement (mls):? None Drains:? Koo Condition:? Stable Procedure in detail: After consent was confirmed, the patient was taken to the operating room and placed under general anesthesia without incident.? Sequential compression devices were in place and active.? She received perioperative antibiotics.? She was then prepped and draped in the usual sterile fashion after placement in the dorsal lithotomy position using the Kiran stirrups.? A Koo catheter was placed.? With the Koo catheter in place, the anterior vaginal mucosa beneath and lateral to the urethra was injected with 10-20 cc of? 0.5% lidocaine / epinephrine 1:200,000.? A 2-3 cm midline incision was made at the level of the midurethra with a scapel. Metzenbaum scissors were used to dissect the vagina from the urethra and then create tunnels beneath the vaginal mucosa up toward the pubic bone on each side.? A marking pen was used to pranay the skin just above the pubic bone and 2 cm from the midline bilaterally, and two small 8-10 mm incisions were made on the suprapubic skin.? The trocar was passed from the right vaginal tunnel, behind the pubic bone, to the right suprapubic incision, and this was repeated on the left side.? The Koo catheter was removed, and cystoscopy was performed with a 70 degree lens. There was no trocar injury, and the bladder, ureters, and urethra were normal.? The Koo catheter was reinserted.? The sling was pulled into position in a tension-free manner, and a Mihaela clamp was easily passed between the sling and the urethra.? The plastic sheaths were removed to anchor the sling, and tension was checked again. The ends of the sling were trimmed just below the skin, and the skin incisions were cleaned and closed with dermabond. The vaginal incision was closed with 2-0 vicryl in a running fashion. Sponge, needle and instrument count was correct.? The patient tolerated the procedure well and was taken to the recovery room in stable condition. An additional set of hands was needed to perform the surgery, so a surgical garment fitter was needed for the case. The assistant news director provided retraction and exposure throughout the case. Cameron Barahona MD [facility]ro[facility]cology [facility] Surgery [place], [place] Applied: implant(s) (urethral sling)
== END 2025-01-04 12:15 | disposition home or self-care (01) ==
PROVIDERS: Referring Provider Obstetrics & Gynecology Gynecology; Visit Provider Obstetrics & Gynecology Gynecology
PROC: 0TSD0ZZ Reposition Urethra, Open Approach (ICD-10-PCS; CPT 57288; principal; 2025-01-04 07:45)
DX: N39.3 Stress incontinence (female) (male) (principal); N90.4 Leukoplakia of vulva; E03.9 Hypothyroidism, unspecified; E66.9 Obesity, unspecified; Z68.33 Body mass index [BMI] 33.0-33.9, adult
CPT/HCPCS: 57288; C1771; J0689; J1100; J2405; J2704; J3010; J7120